=== PATIENT | female | born 1955 | race Caucasian/White ===

== ENCOUNTER 2020-04-21 06:37 | Day surgery (SDC) | payer OTHER, SELFPAY ==
[~2020-04-21] VITALS: Ht 162.6 cm; Wt 103.9 kg
[2020-04-21] MEDS ORDERED: MIDAZOLAM 2 MG/2 ML VIAL ONE (07:31)
[2020-04-21] MEDS ORDERED: fentaNYL 0.05 MG/ML VIAL ONE (07:31)
[2020-04-21] MEDS ORDERED: LIDOCAINE VISCOUS 2% 20 ML UDC ONE (07:31)
[2020-04-21] MEDS ORDERED: LIDOCAINE 2% 100 MG/5 ML UJET TP ONE (07:31)
[2020-04-21] MEDS ORDERED: fentaNYL 0.05 MG/ML VIAL IVP ONE (08:30)
[2020-04-21] MEDS ORDERED: MIDAZOLAM 2 MG/2 ML VIAL IVP ONE (08:30)
== END 2020-04-21 09:35 | disposition home or self-care (01) ==
LOC: MDS 06:37 → MMU 06:38 → MDS 09:35
PROVIDERS: ATTEND Internal Medicine Gastroenterology
DX: R19.7 Diarrhea, unspecified (principal); K57.30 Diverticulosis of large intestine without perforation or abscess without bleeding; K31.9 Disease of stomach and duodenum, unspecified; R13.10 Dysphagia, unspecified; K44.9 Diaphragmatic hernia without obstruction or gangrene; Z86.010 Personal history of colon polyps; E11.9 Type 2 diabetes mellitus without complications; I10 Essential (primary) hypertension; K21.9 Gastro-esophageal reflux disease without esophagitis; M79.7 Fibromyalgia; Z90.710 Acquired absence of both cervix and uterus; Z98.890 Other specified postprocedural states; Z96.653 Presence of artificial knee joint, bilateral; Z11.59 Encounter for screening for other viral diseases
CPT/HCPCS: 36415; 43239; 45380; 88305; 88312; 88313; J2250; J3010; U0003; C9803-CS